=== PATIENT | male | born 1945 | race Caucasian/White ===

== ENCOUNTER 2016-06-04 09:55 | Outpatient (CLI) | payer MEDICARE, BC ==
--- NOTE | 2016-06-04 15:09 | ULT ---
LEFT LOWER EXTREMITY VENOUS DOPPLER ULTRASOUND: Date: 06/04/16 Color duplex Doppler ultrasonography of the deep veins of the left lower extremity was performed for evaluation of calf swelling. FINDINGS: Clot is present with poor to no compressibility in the deep veins beginning at the proximal femoral vein down through the calf region. Normal flow and compression does not occur again until the web art director ior tibial veins near the ankle. The finding are consistent with deep venous thrombosis. There is no flow or augmentation through these areas. IMPRESSION: Positive for deep venous thrombosis from the proximal femoral vein down through the calf veins. ER notified at 1115 hours. CODE CR. POS: [facility]
== END 2016-06-04 09:56 | disposition home or self-care (01) ==
LOC: BURULT 09:55
PROVIDERS: ATTEND Family Medicine
DX: M79.89 Other specified soft tissue disorders (principal); R60.9 Edema, unspecified

== ENCOUNTER 2016-06-04 10:47 | Emergency (ER) | payer MEDICARE, BC ==
[2016-06-04 11:27] LABS: #Eosinphils 0.1 thou/uL (0.0-0.7); #Monocytes 0.5 thou/uL (0.11-0.59); #Neutrophils 12.1 thou/uL (1.40-6.50); %Basophils 0.3 % (0.0-1.0); %Eosinophils 0.4 % (0.0-10.0); %Monocytes 3.7 % (0.0-10.0); Hematocrit 48.1 % (42.0-52.0); Mean Platelet Volume 6.7 fL (7.4-10.4); Red Blood Cell (RBC) Count 5.39 mill/uL (4.70-6.10); White Blood Cell (WBC) Count 13.7 thou/uL (4.8-10.8)
[2016-06-04] MEDS ORDERED: Enoxaparin Sodium 100 MG/ML SYRINGE ONE (11:27)
[2016-06-04 11:31] LABS: PTT 26.2 SEC (22.9-36.1); Prothrombin Time 13.9 SEC (12.0-14.7)
[2016-06-04 11:41] LABS: ALT (SGPT) 31 U/L (0-55); AST (SGOT) 25 U/L (5-34); Alkaline Phosphatase 82 U/L (40-150); Anion Gap 12 mmol/L (10-20); BUN (Urea Nitrogen) 21 mg/dL (8.4-25.7); Bilirubin, Total 0.4 mg/dL (0.2-1.2); Calc. Creatinine Clearance 0 mL/min (70-130); Calcium 9.5 mg/dL (7.8-10.44); Carbon Dioxide 28 mmol/L (23-31); Chloride 104 mmol/L (98-107); Estimated GFR-MDRD 86; Globulin 3.6 g/dL (2.4-3.5); Protein, Total 7.3 g/dL (5.8-8.1)
[2016-06-04 12:32] LABS: Bilirubin Negative (Negative); Blood, Urine Negative (Negative); Glucose, Urine (Dipstick) Negative (Negative); Ketone, Urine Negative (Negative); Nitrite Negative (Negative); Protein, Urine (Dipstick) Negative (Neg-Trace)
[2016-06-04] MEDS ORDERED: Clopidogrel Bisulfate 75 MG TAB ONE (12:34)
--- NOTE | 2016-06-04 13:03 | ERRECORD ---
[facility] EMERGENCY RECORD HPI EXTREMITY (11:47 JPIP) CHIEF COMPLAINT: Patient presents for evaluation of pain, to the left knee, to the left lower leg, Patient presents for evaluation of CO pain in the left knee for 5 days. states he had an ultrasound this AM and was sent straight to the ED for a DVT. HISTORIAN: History provided by patient, History provided by patient's spouse. MECHANISM OF INJURY: Unknown mechanism. LOCATION: Symptoms are localized, most severe in left leg. SEVERITY: Current severity of pain rated as 0/10. TIME COURSE: Sudden onset of symptoms, 5, days ago, There has been no change in the patient's symptoms over time, are constant. ASSOCIATED WITH: Associated with decreased use, No associated distal neuro complaint, No associated erythema, No associated fever, No associated inability to ambulate, No associated inability to bear weight, pain on weight bearing and ROM. EXACERBATED BY: Patient's condition exacerbated by walking, Patient's condition exacerbated by bearing weight. RELIEVED BY: Patient's condition relieved by nothing. ROS (11:49 JPIP) CONSTITUTIONAL: Historian denies chills, denies fever. CARDIOVASCULAR: Historian denies chest pain, denies dyspnea on exertion. RESPIRATORY: Historian denies cough, denies shortness of breath. GI: Historian denies nausea, denies vomiting. MUSCULOSKELETAL: Historian reports arthralgias, reports myalgias. SKIN: Historian denies rash, denies skin changes, denies skin lesions. NEUROLOGIC: Historian denies paresthesias. NOTES: All systems reviewed, negative except as described above. PAST MEDICAL HISTORY MEDICAL HISTORY: Flu vaccine not up to date, Tetanus not up to date, Past medical history includes cardiac history, myocardial infarction, Flu vaccine not up to date, Tetanus not up to date, Pneumococcal vaccine not up to date, Past medical history includes history of hypertension. (11:42 JSMI) MALE SURGICAL HISTORY: CHEST TUBE AT YOUNG AGE FOR PNEUMONIA/PNEUMOTHORAX. Cardiac stent. (11:42 JSMI) PSYCHIATRIC HISTORY: No previous psychiatric history. (11:42 JSMI) SOCIAL HISTORY: Patient has no smoking history, Patient denies alcohol use, Patient denies drug use. (11:42 JSMI) NOTES: Nursing records reviewed, Medication list reviewed. (11:51 &a-1R&a+25V*p+0X*[id number]*c202B*c15G*c2P*p-0X&a-25V&a+1R Name: Edy Guajardo : 1945 M71 MedRec: [id number] AcctNum: [id number] Prepared: TueJun 04, 2016 13:01 by Interface Page 1 of 4 pMD [facility] EMERGENCY RECORD JPIP) KNOWN ALLERGIES Penicillins CURRENT MEDICATIONS meTOPROLOL succinate: TABLET, EXTENDED RELEASE 24 HR : Strength - 25 mg : ORAL Patient Dose: once a day. (11:04 JSMI) atorvastatin: TABLET : Strength - 80 mg : ORAL Patient Dose: once a day. (11:04 JSMI) predniSONE: TABLET : Strength - 50 mg : ORAL Patient Dose: once a day. (11:05 JSMI) aspirin: TABLET : Strength - 81 mg : ORAL Patient Dose: once a day. (11:06 JSMI) coQ10 (ubiquinol): CAPSULE : Strength - 100 mg : ORAL Patient Dose: once a day. (11:06 JSMI) VITAL SIGNS VITAL SIGNS: BP: 152/83, Pulse: 59, Resp: 14, Temp: 97.7 (Oral), Pain: 0, O2 sat: 96 on Room Air, Time: 06/04/2016 10:54. (10:54 JSMI) BP: 160/87, Pulse: 60, Resp: 14, Pain: 0, O2 sat: 98 on ra, Time: 06/04/2016 11:07. (11:07 JSMI) BP: 140/78, Pulse: 61, Resp: 14, Pain: 0, O2 sat: 95 on Room Air, Time: 06/04/2016 11:39. (11:39 JSMI) BP: 160/92, Pulse: 65, Resp: 18, Pain: 0, O2 sat: 98 on ra, Time: 06/04/2016 12:30. (12:30 MI) BP: 148/93, Pulse: 66, Resp: 18, Pain: 0, O2 sat: 97 on Room Air, Time: 06/04/2016 12:27. (12:27 [facility]) BP: 148/93, Pulse: 65, Resp: 16, Pain: 0, O2 sat: 98 on ra, Time: 06/04/2016 12:44. (12:44 [facility]) PHYSICAL EXAM (11:49 [facility]) CONSTITUTIONAL: Vital signs reviewed, Patient afebrile, Pulse normal, Blood pressure normal, Respiratory rate normal, Patient appears non toxic, Patient appears pain free, Patient alert and oriented to person, place and time. HEAD: Head exam included findings of head atraumatic, normocephalic. EYES: Eye exam included findings of eyelids normal to inspection, Conjunctiva normal, Sclera normal, no periorbital ecchymosis, no periorbital edema, no periorbital erythema. NECK: Neck exam included findings of normal range of motion, Trachea midline, no carotid bruits, no jugular venous distention, no cervical adenopathy, no tenderness. RESPIRATORY CHEST: Respiratory exam included findings of no &a-1R&a+25V*p+0X*c2222V*c202B*c15G*c2P*p-0X&a-25V&a+1R Name: Edy Guajardo : 1945 M71 MedRec: [id number] AcctNum: [id number] Prepared: TueJun 04, 2016 13:01 by Interface Page 2 of 4 pMD [facility] EMERGENCY RECORD respiratory distress, Breath sounds clear, No wheezing, No rales, No rhonchi, Breath sounds not absent, Breath sounds not diminished. CARDIOVASCULAR: Cardiovascular exam included findings of heart rate regular rate and rhythm, Heart sounds normal. ABDOMEN MALE: Abdominal exam included findings of abdomen nontender, Liver normal, Spleen normal, no distension, no mass, no pulsatile masses, no peritoneal signs, no rigidity, no guarding, no rebound. UPPER EXTREMITY: Upper extremity exam included findings of inspection normal, no abrasions, no contusions, no deformity, no lacerations, range of motion normal. LOWER EXTREMITY: Lower extremity exam included findings of inspection abnormal, +fullness and TTP of the left popliteal fossa, distal pulses intact, capillary refill less than 2 seconds, no edema, Calf tenderness, to the left lower extremity, Knee tenderness, left side, posterior, Lower leg tenderness, left side, posterior, upper LE. NEURO: Librado coma scale 15, no focal motor deficits, no focal sensory deficits. SKIN: Skin exam included findings of skin warm, dry, and normal in color. PSYCHIATRIC: Psychiatric exam included findings of patient oriented to person place and time, Normal affect. EKG INTERPRETATION (11:53 JPIP) MONITOR STRIP: pvc monitor strip interpreted by Emergency Department Physician, Monitor strip shows normal sinus rhythm, with no ectopics. 12 LEAD EKG INTERPRETATION: 12 lead EKG interpreted by Emergency Department Physician at time of study, 12 lead EKG shows, sinus bradycardia, Rate (beats per minute): 55, with no ectopics, Conduction normal, [place] normal, Other findings include:, nonspecific ST changes, Clinical impression:, other dysrhythmia sinus bradycardia. RADIOLOGYINTERPRETATION CHEST: Chest CT, with contrast shows, no infiltrate, no pneumothorax, no hemothorax, no pleural effusion, pulmonary embolism bilaterally. (12:31 JPIP) LOWER EXTREMITIES: Doppler, of the left leg shows, Other findings: +DVT femoral vein. (11:54 JPIP) CREDIT COLLECTIONS ANALYST: Preliminary ultrasound reviewed by, Radiologist. (11:55 JPIP) Preliminary review of CT scans by, Radiologist. (12:31 JPIP) MEDICATION ADMINISTRATION SUMMARY Drug Name: Plavix, Dose Ordered: 75 mg, Route: Oral, Status: Given, Time: 12:37 06/04/2016, &a-1R&a+25V*p+0X*[id number]*c202B*c15G*c2P*p-0X&a-25V&a+1R Name: Edy Guajardo : 1945 M71 MedRec: [id number] AcctNum: [id number] Prepared: TueJun 04, 2016 13:01 by Interface Page 3 of 4 pMD [facility] EMERGENCY RECORD Drug Name: *aspirin oral, Dose Ordered: 324 mg, Route: Oral, Status: Given, Time: 11:36 06/04/2016, Drug Name: Lovenox, Dose Ordered: 90 mg, Route: Subcutaneous, Status: Given, Time: 11:35 06/04/2016, *Additional information available in notes, Detailed record available in Medication Service section. PROBLEM LIST No recorded problems DIAGNOSIS (12:37 JPIP) FINAL: PRIMARY: Multiple PE's, ADDITIONAL: DVT - left lower leg. PRESCRIPTION No recorded prescriptions DISPOSITION PATIENT: Disposition Type: Transfer, Disposition: Transfer to [facility], Disposition Transport: Ambulance, Condition: Fair. (12:37 JPIP) Patient left the department. (12:57 JSMI) Menjivar: AHOO=GIRISH [place], August THEA=DO Acevedo Joseph JSMI=OHRACE Guzman, Gauri &a-1R&a+25V*p+0X*c5900W*c202B*c15G*c2P*p-0X&a-25V&a+1R Name: Edy Guajardo : 1945 M71 MedRec: [id number] AcctNum: [id number] Prepared: TueJun 04, 2016 13:01 by Interface Page 4 of 4 pMD MTDD
--- NOTE | 2016-06-04 13:08 | CT ---
CT ANGIO OF THE CHEST: DATE: 06/04/16. FINDINGS: Spiral CT of the chest was performed for evaluation of possible pulmonary embolism in this patient w ith known DVT of the left leg. Axial slices were acquired after giving a bolus of IV contrast. Obl ique coronal and coronal reformations through the pulmonary arteries were then obtained. This study is positive for pulmonary embolism. There are multiple defects in pulmonary arteries martin aterally leading to all lobes. These begin in the secondary branches and extend outward and some cl ots are fairly sizable. Literally, one can find clots in arteries going to each of the lobes. Clot s are particularly large leading to the left upper lobe as well as toward the right lower and right middle lobes. The mediastinum was otherwise unremarkable. There are coronary artery calcifications in the LAD and circumflex arteries and probably to a lesser extent in the right coronary. There is no sign of aortic dissection or aneurysm. No pericardial effusion was seen. There are no pleural effusions. There is a pleural-based density in the right lower lobe peripheral ly that measures about 2.3 cm in size. It may be a small peripheral infarction. An actual mass see ms less likely. The lungs are otherwise clear. Scans go a short ways into the upper abdomen. Multiple splenic granulomas are noted. There may be a small cyst in the dome of the right lobe of the liver. IMPRESSION: Multiple pulmonary emboli in all segments bilaterally, some of which are fairly sizable. Many start immediately after the first branch point of each main pulmonary artery. Report taken to ER at 1228 on 06/04/16. CODE CR POS: DEBRA
--- NOTE | 2016-06-04 13:09 | PICIS ---
[facility] EMERGENCY RECORD COMMUNICATIONS (12:35 JP) COMMUNICATIONS: Physician, contacted/paged at 1235, Reason for notification transfer, Dr Masterson accepts. TRIAGE (11:01 JSMI) PATIENT: NAME: Edy Guajardo, AGE: 71, GENDER: male, : Tue1945, TIME OF GREET: TueJun 04, 2016 10:49, PREFERRED LANGUAGE: Nepali, ETHNICITY: Not or , ECODE BILLING MAP: [place], SSN: [id number], Zip Code: [address], KG WEIGHT: 90.26, PHONE: , , , PERSON ID: [id number], PAYMENT: [employer], PCP: DO RIBERA JOHN SCOTT. (11:01 JSMI) COMPLAINT: Left Leg Pain. (11:01 JSMI) ADMISSION: URGENCY: 3 Urgent, ADMISSION SOURCE: Home, TRANSPORT: CAR, BED: ER -02. (11:01 JSMI) ASSESSMENT: Assessment: PT PRESENTS AWAKE ALERT AND ORIENTED. SKIN PINK WARM AND DRY., Symptoms began 05/31/2016. (11:42 JSMI) SIRS SCORING: Heart Rate 55-109 (0), Temp range 96.8-101.1 (0), respiratory rate 12-24 (0), Mental Status altered: no (0), Infection or Suspected Infection: No. (11:42 JSMI) PROVIDERS: TRIAGE NURSE: Gauri Guzman RN. (11:01 JSMI) VITAL SIGNS: BP 152/83, Pulse 59, Resp 14, Temp 97.7, (Oral), Pain 0, O2 Sat 96, on Room Air, Time 06/04/2016 10:54. (10:54 JSMI) BP 140/78, Pulse 61, Resp 14, Pain 0, O2 Sat 95, on Room Air, Time 06/04/2016 11:39. (11:39 JSMI) PREVIOUS VISIT ALLERGIES: Penicillins. (11:01 JSMI) Penicillins. (11:42 JSMI) KNOWN ALLERGIES Penicillins CURRENT MEDICATIONS meTOPROLOL succinate: TABLET, EXTENDED RELEASE 24 HR : Strength - 25 mg : ORAL Patient Dose: once a day. (11:04 JSMI) atorvastatin: TABLET : Strength - 80 mg : ORAL Patient Dose: once a day. (11:04 JSMI) predniSONE: TABLET : Strength - 50 mg : ORAL Patient Dose: once a day. (11:05 JSMI) aspirin: TABLET : Strength - 81 mg : ORAL Patient Dose: once a day. (11:06 JSMI) coQ10 (ubiquinol): CAPSULE : Strength - 100 mg : ORAL Patient Dose: once a day. (11:06 JSMI) VITAL SIGNS VITAL SIGNS: BP: 152/83, Pulse: 59, Resp: 14, Temp: 97.7 (Oral), &a-1R&a+25V*p+0X*y2448E*c202B*c15G*c2P*p-0X&a-25V&a+1R Name: Edy Guajardo : 1945 M71 MedRec: [id number] AcctNum: [id number] Prepared: TueJun 04, 2016 13:06 by Interface Page 1 of 10 pMD [facility] EMERGENCY RECORD Pain: 0, O2 sat: 96 on Room Air, Time: 06/04/2016 10:54. (10:54 JSMI) BP: 160/87, Pulse: 60, Resp: 14, Pain: 0, O2 sat: 98 on ra, Time: 06/04/2016 11:07. (11:07 JSMI) BP: 140/78, Pulse: 61, Resp: 14, Pain: 0, O2 sat: 95 on Room Air, Time: 06/04/2016 11:39. (11:39 JSMI) BP: 160/92, Pulse: 65, Resp: 18, Pain: 0, O2 sat: 98 on ra, Time: 06/04/2016 12:30. (12:30 JSMI) BP: 148/93, Pulse: 66, Resp: 18, Pain: 0, O2 sat: 97 on Room Air, Time: 06/04/2016 12:27. (12:27 [facility]) BP: 148/93, Pulse: 65, Resp: 16, Pain: 0, O2 sat: 98 on ra, Time: 06/04/2016 12:44. (12:44 JSMI) NURSING ASSESSMENT: EXTREMITY LOWER (11:07 JSMI) CONSTITUTIONAL: Complex assessment performed, Patient arrives ambulatory, Gait steady, History obtained from patient, Patient appears comfortable, Patient cooperative, Patient alert, Oriented to person, place and time, Skin warm, Skin dry, Skin normal in color, Mucous membranes pink, Mucous membranes moist, Patient is well-groomed, Patient complains of left lower leg pain, Pt had pain to left lower leg wile walking on Tuesday. Seen by PCP and treated OP, ultrasound today shows DVT. Pt sent to ER for further evaluation and treatment. PAIN: aching pain, to the left lower leg. LEFT LOWER EXTREMITY: Left lower extremity assessment findings include capillary refill less than 2 seconds, Skin color normal, Skin temperature warm, Distal sensation intact, Muscle tone normal, dorsalis pedis pulse is +2, Leg circumference: 42cm. RIGHT LOWER EXTREMITY: Right lower extremity assessment findings include capillary refill less than 2 seconds, Skin color normal, Skin temperature warm, Distal sensation intact, Muscle tone normal, Leg circumference: 39cm. VITAL SIGNS: BP: 160, / 87, Pulse: 60, Resp: 14, Pain: 0, O2 sat: 98, on: ra. NURSING PROCEDURE: EKG CHART (11:31 AHOO) PATIENT IDENTIFIER: Patient actively involved in identification process, Patient's identity verified by patient stating name, Patient's identity verified by patient stating date, Patient's identity verified by hospital ID bracelet, Patient's identity verified by family member. EKG: EKG indicated for DVT, 12 lead EKG performed on the left chest, done by ADRIANA COX LVN, first EKG. FOLLOW-UP: After procedure, EKG for interpretation given to Dr. DR ACEVEDO. NURSING PROCEDURE: IV PATIENT IDENITIFIER: Patient actively involved in identification process, Patient's identity verified by patient stating name, Patient's identity verified by patient stating date, Patient's identity verified by hospital ID bracelet, Patient's identity &a-1R&a+25V*p+0X*m0413D*c202B*c15G*c2P*p-0X&a-25V&a+1R Name: Edy Guajardo : 1945 M71 MedRec: [id number] AcctNum: [id number] Prepared: TueJun 04, 2016 13:06 by Interface Page 2 of 10 pMD [facility] EMERGENCY RECORD verified by family member. (11:20 AHOO) IV SITE 1: IV therapy indicated for medication administration, IV established, to the right antecubital, using an 18 gauge catheter, in one attempt, Saline lock established, Flushed with normal saline (mls): 10ML, Labs drawn at time of placement, labeled in the presence of the patient and sent to lab. (11:20 AHOO) FOLLOW-UP SITE 1: Notes: IV patent at discharge, no signs of infiltration. (12:57 JSMI) NURSING PROCEDURE: NURSE NOTES (12:30 JSMI) NURSES NOTES: Notes: CT positive for multiple pulmonary emboli, transfer process initiated. VITAL SIGNS: BP: 160, / 92, Pulse: 65, Resp: 18, Pain: 0, O2 sat: 98, on: ra. NURSING PROCEDURE: TRANSFER TRANSFER: Reason for transfer need for specialized care, Diagnosis: DVT, multiple bilateral P.E, Accepting institution: [facility], Accepting physician: Dr. Masterson, Referring physician: Dr. Acevedo, Transported by urgent ambulance, accompanied by emergency medical services personnel, Report called to receiving facility, Summary of Care printed, Copy of patient record prepared for receiving facility, Copy of diagnostic studies, Medication reconciliation form prepared and sent to receiving facility, Patient consent for transfer signed, Patient given appropriate sedation for safe transport, Family member contacted, at bedside, Notes: 1230 Transfer center notified 1235 Accepting MD and Admin approval 1230 called EMS 1237 EMS arrived 1244 Pt departed. (12:44 JSMI) Report called to receiving facility, [facility], Provided opportunity to answer questions. (12:55 JSMI) VITAL SIGNS: BP: 148, / 93, Pulse: 65, Resp: 16, Pain: 0, O2 sat: 98, on: ra. (12:44 JSMI) NURSING PROCEDURE: TRANSPORT TO TESTS PATIENT IDENTIFIER: Patient actively involved in identification process, Patient's identity verified by patient stating name, Patient's identity verified by patient stating date, Patient's identity verified by hospital ID bracelet, Patient's identity verified by family member. (12:01 AHOO) TRANSPORT TO TESTS: Patient transported to CT scan, via wheelchair, Accompanied by x-ray hazardous waste technician. (12:01 AHOO) FOLLOW-UP: After procedure, patient returned to emergency department. (12:17 [facility]) ORDER DETAILS Order Name: [employer] MANAGER ED, Status: Done, Time: 11:26 06/04/2016, User: BRIEN, &a-1R&a+25V*p+0X*d0910R*c202B*c15G*c2P*p-0X&a-25V&a+1R Name: Edy Guajardo : 1945 M71 MedRec: [id number] AcctNum: [id number] Prepared: TueJun 04, 2016 13:06 by Interface Page 3 of 10 D [facility] EMERGENCY RECORD - Ordered for: DO Acevedo Joseph, - Entered by: DO Acevedo Joseph - TueJun 04, 2016 11:12, - Quantity: 1, Order Name: CBC with Differential, Status: Active, Time: 11:10 06/04/2016, User: THEA, - Ordered for: DO Acevedo Joseph, - Entered by: DO Acevedo Joseph - TueJun 04, 2016 11:10, - Quantity: 1, Order Name: Comprehensive Metabolic Panel, Status: Active, Time: 11:10 06/04/2016, User: THEA, - Ordered for: DO Acevedo Joseph, - Entered by: DO Acevedo Joseph - TueJun 04, 2016 11:10, - Quantity: 1, Order Name: CTA Angio Chest W WO Con(PE Protocol), Status: Active, Time: 11:12 06/04/2016, User: THEA, - Ordered for: DO Acevedo Joseph, - Entered by: DO Acevedo Joseph - TueJun 04, 2016 11:12, - Quantity: 1, Order Name: EKG 12 Lead in Emergency Room, Status: Active, Time: 11:12 06/04/2016, User: THEA, - Ordered for: DO Acevedo Joseph, - Entered by: DO Acevedo Joseph - TueJun 04, 2016 11:12, - Quantity: 1, Order Name: ERRT Pulse Oximeter ER, Status: Active, Time: 11:12 06/04/2016, User: THEA, - Ordered for: DO Acevedo Joseph, - Entered by: DO Acevedo Joseph - TueJun 04, 2016 11:12, - Quantity: 1, Order Name: Protime with INR, Status: Active, Time: 11:10 06/04/2016, User: THEA, - Ordered for: DO Acevedo Joseph, - Entered by: DO Acevedo Joseph - TueJun 04, 2016 11:10, - Quantity: 1, Order Name: PTT, Status: Active, Time: 11:10 06/04/2016, User: THEA, - Ordered for: DO Acevedo Joseph, - Entered by: DO Acevedo Joseph - TueJun 04, 2016 11:10, - Quantity: 1, Order Name: SALINE LOCK, Status: Done, Time: 11:26 06/04/2016, User: BRIEN, - Ordered for: DO Acevedo Joseph, - Entered by: DO Acevedo Joseph - TueJun 04, 2016 11:12, - Quantity: 1, Order Name: Urinalysis w/ Rflx Microscopic, Status: Active, Time: 11:10 06/04/2016, User: THEA, - Ordered for: DO Acevedo Joseph, - Entered by: DO Acevedo Joseph - TueJun 04, 2016 11:10, - Quantity: 1. MEDICATION ADMINISTRATION SUMMARY &a-1R&a+25V*p+0X*w1724X*c202B*c15G*c2P*p-0X&a-25V&a+1R Name: Edy Guajardo : 1945 M71 MedRec: [id number] AcctNum: [id number] Prepared: TueJun 04, 2016 13:06 by Interface Page 4 of 10 pMD [facility] EMERGENCY RECORD Drug Name: Plavix, Dose Ordered: 75 mg, Route: Oral, Status: Given, Time: 12:37 06/04/2016, Drug Name: *aspirin oral, Dose Ordered: 324 mg, Route: Oral, Status: Given, Time: 11:36 06/04/2016, Drug Name: Lovenox, Dose Ordered: 90 mg, Route: Subcutaneous, Status: Given, Time: 11:35 06/04/2016, *Additional information available in notes, Detailed record available in Medication Service section. MEDICATION SERVICE Lovenox: Order: Lovenox (enoxaparin sodium) - Dose: 90 mg : Subcutaneous Schedule: Now Ordered by: Dar Acevedo DO Entered by: Dar Acevedo DO TueJun 04, 2016 11:15 , Acknowledged by: Gauri Guzman RN TueJun 04, 2016 11:26 Documented as given by: Gauri Guzman RN TueJun 04, 2016 11:35 Patient, Medication, Dose, Route and Time verified prior to administration. Correct patient, time, route, dose and medication confirmed prior to administration, Patient advised of actions and side-effects prior to administration, Allergies confirmed and medications reviewed prior to administration, Advised not to ambulate without assistance, Patient in position of comfort, Side rails up, Cart in lowest position, Family at bedside, Co-signed by: Adriana Cox LVN TueJun 04, 2016 11:36. Plavix: Order: Plavix (clopidogrel bisulfate) - Dose: 75 mg : Oral Schedule: Now Ordered by: Dar Acevedo DO Entered by: Dar Acevedo DO TueJun 04, 2016 12:34 Documented as given by: Gauri Guzman RN TueJun 04, 2016 12:37 Patient, Medication, Dose, Route and Time verified prior to administration. Correct patient, time, route, dose and medication confirmed prior to administration, Patient advised of actions and side-effects prior to administration, Allergies confirmed and medications reviewed prior to administration, Patient in position of comfort, Side rails up, Cart in lowest position. HPI EXTREMITY (11:47 JPIP) CHIEF COMPLAINT: Patient presents for evaluation of pain, to the left knee, to the left lower leg, Patient presents for evaluation of CO pain in the left knee for 5 days. states he had an ultrasound this AM and was sent straight to the ED for a DVT. HISTORIAN: History provided by patient, History provided by patient's spouse. MECHANISM OF INJURY: Unknown mechanism. LOCATION: Symptoms are localized, most severe in left leg. SEVERITY: Current severity of pain rated as 0/10. TIME COURSE: Sudden onset of symptoms, &a-1R&a+25V*p+0X*d5675O*c202B*c15G*c2P*p-0X&a-25V&a+1R Name: Edy Guajardo : 1945 M71 MedRec: [id number] AcctNum: [id number] Prepared: TueJun 04, 2016 13:06 by Interface Page 5 of 10 pMD [facility] EMERGENCY RECORD 5, days ago, There has been no change in the patient's symptoms over time, are constant. ASSOCIATED WITH: Associated with decreased use, No associated distal neuro complaint, No associated erythema, No associated fever, No associated inability to ambulate, No associated inability to bear weight, pain on weight bearing and ROM. EXACERBATED BY: Patient's condition exacerbated by walking, Patient's condition exacerbated by bearing weight. RELIEVED BY: Patient's condition relieved by nothing. ROS (11:49 JPIP) CONSTITUTIONAL: Historian denies chills, denies fever. CARDIOVASCULAR: Historian denies chest pain, denies dyspnea on exertion. RESPIRATORY: Historian denies cough, denies shortness of breath. GI: Historian denies nausea, denies vomiting. MUSCULOSKELETAL: Historian reports arthralgias, reports myalgias. SKIN: Historian denies rash, denies skin changes, denies skin lesions. NEUROLOGIC: Historian denies paresthesias. NOTES: All systems reviewed, negative except as described above. PAST MEDICAL HISTORY MEDICAL HISTORY: Flu vaccine not up to date, Tetanus not up to date, Past medical history includes cardiac history, myocardial infarction, Flu vaccine not up to date, Tetanus not up to date, Pneumococcal vaccine not up to date, Past medical history includes history of hypertension. (11:42 JSMI) MALE SURGICAL HISTORY: CHEST TUBE AT YOUNG AGE FOR PNEUMONIA/PNEUMOTHORAX. Cardiac stent. (11:42 JSMI) PSYCHIATRIC HISTORY: No previous psychiatric history. (11:42 JSMI) SOCIAL HISTORY: Patient has no smoking history, Patient denies alcohol use, Patient denies drug use. (11:42 JSMI) NOTES: Nursing records reviewed, Medication list reviewed. (11:51 JPIP) PHYSICAL EXAM (11:49 JPIP) CONSTITUTIONAL: Vital signs reviewed, Patient afebrile, Pulse normal, Blood pressure normal, Respiratory rate normal, Patient appears non toxic, Patient appears pain free, Patient alert and oriented to person, place and time. HEAD: Head exam included findings of head atraumatic, normocephalic. EYES: Eye exam included findings of eyelids normal to inspection, Conjunctiva normal, Sclera normal, no periorbital ecchymosis, no &a-1R&a+25V*p+0X*n5444P*c202B*c15G*c2P*p-0X&a-25V&a+1R Name: Edy Guajardo : 1945 M71 MedRec: [id number] AcctNum: [id number] Prepared: TueJun 04, 2016 13:06 by Interface Page 6 of 10 pMD [facility] EMERGENCY RECORD periorbital edema, no periorbital erythema. NECK: Neck exam included findings of normal range of motion, Trachea midline, no carotid bruits, no jugular venous distention, no cervical adenopathy, no tenderness. RESPIRATORY CHEST: Respiratory exam included findings of no respiratory distress, Breath sounds clear, No wheezing, No rales, No rhonchi, Breath sounds not absent, Breath sounds not diminished. CARDIOVASCULAR: Cardiovascular exam included findings of heart rate regular rate and rhythm, Heart sounds normal. ABDOMEN MALE: Abdominal exam included findings of abdomen nontender, Liver normal, Spleen normal, no distension, no mass, no pulsatile masses, no peritoneal signs, no rigidity, no guarding, no rebound. UPPER EXTREMITY: Upper extremity exam included findings of inspection normal, no abrasions, no contusions, no deformity, no lacerations, range of motion normal. LOWER EXTREMITY: Lower extremity exam included findings of inspection abnormal, +fullness and TTP of the left popliteal fossa, distal pulses intact, capillary refill less than 2 seconds, no edema, Calf tenderness, to the left lower extremity, Knee tenderness, left side, posterior, Lower leg tenderness, left side, posterior, upper LE. NEURO: [place] coma scale 15, no focal motor deficits, no focal sensory deficits. SKIN: Skin exam included findings of skin warm, dry, and normal in color. PSYCHIATRIC: Psychiatric exam included findings of patient oriented to person place and time, Normal affect. LAB INTERPRETATION (11:52 [facility]) INTERPRETATION: I reviewed the lab results, All labs normal except as noted below, CBC abnormal, White blood cell count elevated, Neutrophils elevated, Chemistry abnormal, Glucose elevated, Liver functions normal, PT normal, PTT normal. EVENTS TRANSFER: Triage to Emergency Emergency Room -02. (TueJun 04, 2016 11:01 JSMI) Removed from Emergency Emergency Room -02. (12:57 JSNM) RADIOLOGYINTERPRETATION CHEST: Chest CT, with contrast shows, no infiltrate, no pneumothorax, no hemothorax, no pleural effusion, pulmonary embolism bilaterally. (12:31 JPIP) LOWER EXTREMITIES: Doppler, of the left leg shows, Other findings: +DVT femoral vein. (11:54 JPIP) ENERGY EFFICIENCY FINANCE MANAGER: Preliminary ultrasound reviewed by, Radiologist. (11:55 JPIP) &a-1R&a+25V*p+0X*m0817Z*c202B*c15G*c2P*p-0X&a-25V&a+1R Name: Edy Guajardo : 1945 M71 MedRec: [id number] AcctNum: [id number] Prepared: TueJun 04, 2016 13:06 by Interface Page 7 of 10 pMD [facility] EMERGENCY RECORD Preliminary review of CT scans by, Radiologist. (12:31 JPIP) EKG INTERPRETATION (11:53 JPIP) MONITOR STRIP: finished stock inspector strip interpreted by Emergency Department Physician, Monitor strip shows normal sinus rhythm, with no ectopics. 12 LEAD EKG INTERPRETATION: 12 lead EKG interpreted by Emergency Department Physician at time of study, 12 lead EKG shows, sinus bradycardia, Rate (beats per minute): 55, with no ectopics, Conduction normal, [place] normal, Other findings include:, nonspecific ST changes, Clinical impression:, other dysrhythmia sinus bradycardia. O2SAT INTERPRETATION (11:52 JPIP) O2SAT: Continuous pulse oximetry, Oxygen saturation 95%, on room air, Oxygen saturation interpretation: Normal, No intervention required. PROBLEM LIST No recorded problems DIAGNOSIS (12:37 JPIP) FINAL: PRIMARY: Multiple PE's, ADDITIONAL: DVT - left lower leg. DISPOSITION PATIENT: Disposition Type: Transfer, Disposition: Transfer to [facility], Disposition Transport: Ambulance, Condition: Fair. (12:37 JPIP) Patient left the department. (12:57 JSMI) PRESCRIPTION No recorded prescriptions IMAGING ULTRASOUND READING: Image captured from scanner. (11:28 AHOO) *EKG: Image captured from scanner. (11:58 AHOO) CONSENTS: Image captured from scanner. (12:45 AHOO) *MEMORANDUM OF TRANSFER: Image captured from scanner. (12:46 AHOO) PHYSICIAN CERTIFICATION STATEMENT: Image captured from scanner. (12:46 AHOO) *SUPPLY CHARGE SHEET: Image captured from scanner. (12:46 AHOO) RESULTS LABORATORY: CBC with Differential Collection DT: TueJun 04, 2016 11:22, *White Blood Cell (WBC) Count 13.7 - H thou/uL, Range (4.8-10.8), Red Blood Cell (RBC) Count 5.39 mill/uL, Range (4.70-6.10), &a-1R&a+25V*p+0X*l0258V*c202B*c15G*c2P*p-0X&a-25V&a+1R Name: Edy Guajardo : 1945 M71 MedRec: [id number] AcctNum: [id number] Prepared: TueJun 04, 2016 13:06 by Interface Page 8 of 10 pMD [facility] EMERGENCY RECORD Hemoglobin 15.5 g/dL, Range (14.0-18.0), Hematocrit 48.1 %, Range (42.0-52.0), Mean Corpuscular Volume 89.3 fl, Range (80.0-94.0), Mean Corpuscular Hemoglobin 28.9 pg, Range (27.0-31.0), Mean Corpuscular HGB CONC 32.3 g/dL, Range (32.0-36.0), RBC Distribution Width 11.6 %, Range (11.5-14.5), Platelet Count 267 thou/uL, Range (130-400), *Mean Platelet Volume 6.7 - L fL, Range (7.4-10.4), *%Neutrophils 88.0 - H %, Range (42.0-75.0), *%Lymphocytes 7.5 - L %, Range (21.0-51.0), %Monocytes 3.7 %, Range (0.0-10.0), %Eosinophils 0.4 %, Range (0.0-10.0), %Basophils 0.3 %, Range (0.0-1.0), *#Neutrophils 12.1 - H thou/uL, Range (1.40-6.50), *#Lymphocytes 1.0 - L thou/uL, Range (1.20-3.40), #Monocytes 0.5 thou/uL, Range (0.11-0.59), #Eosinphils 0.1 thou/uL, Range (0.0-0.7), #Basophils 0.0 thou/uL, Range (0.0-0.2). (11:32 [facility]) Comprehensive Metabolic Panel Collection DT: TueJun 04, 2016 11:22, Sodium 140 mmol/L, Range (136-145), Potassium 4.1 mmol/L, Range (3.5-5.1), Chloride 104 mmol/L, Range (98-107), Carbon Dioxide 28 mmol/L, Range (23-31), Anion Gap 12 mmol/L, Range (10-20), BUN (Urea Nitrogen) 21 mg/dL, Range (8.4-25.7), Creatinine 0.88 mg/dL, Range (0.7-1.3), Estimated GFR-MDRD 86 , Reference Range for Estimated GFR: Greater than 90, mL/min/1.73 m2 NOTE: The MDRD equation has not been validated for use, with the elderly (over 70 years of age), women, patients with, serious comorbid condition or persons with extremes of body size, muscle, mass, or nutritional status. , *Glucose 130 - H mg/dL, Range (80-115), Calcium 9.5 mg/dL, Range (7.8-10.44), Bilirubin, Total 0.4 mg/dL, Range (0.2-1.2), Protein, Total 7.3 g/dL, Range (5.8-8.1), NOTE: Plasma values are generally 0.3 to 0.5 g/dL higher than serum values, due to the presence of fibrinogen. , Albumin 3.7 g/dL, Range (3.4-4.8), *Globulin 3.6 - H g/dL, Range (2.4-3.5), *Alb/Glob Ratio 1.0 - L g/dL, Range (1.2-2.2), Alkaline Phosphatase 82 U/L, Range (40-150), AST (SGOT) 25 U/L, Range (5-34), ALT (SGPT) 31 U/L, Range (0-55). (11:43 [facility]) PTT Collection DT: TueJun 04, 2016 11:22, See comment below , Anticoagulant? NONE Medical Necessity SUSPECT COAGULOPATHY , PTT 26.2 SEC, Range (22.9-36.1). (11:52 JP) &a-1R&a+25V*p+0X*g6669Z*c202B*c15G*c2P*p-0X&a-25V&a+1R Name: Edy Guajardo : 1945 M71 MedRec: [id number] AcctNum: [id number] Prepared: TueJun 04, 2016 13:06 by Interface Page 9 of 10 pMD [facility] EMERGENCY RECORD Protime with INR Collection DT: TueJun 04, 2016 11:22, See comment below , Anticoagulant? NONE Medical Necessity SUSPECT COAGULOPATHY , Prothrombin Time 13.9 SEC, Range (12.0-14.7), INR-International Normal Ratio 1.0 , ATTENTION: READ CAREFULLY , The, recommended therapeutic ranges for oral anticoagulant treatments are: , , Low Intensity: 1.5 - 2.0 Moderate Intensity: 2.0, - 3.0 High Intensity (1): 2.5 - 3.5 High, Intensity (2): 3.0 - 4.0 CRITICAL: >, 4.0 . (11:52 JPIP) Urinalysis w/ Rflx Microscopic Collection DT: TueJun 04, 2016 12:32, Color Yellow , Range (Yellow), Clarity Clear , Range (Clear), Specific [place], Urine 1.020 , Range (1.005-1.030), pH, Urine 5.5 , Range (5.0-9.0), Leukocyte Negative , Range (Negative), Nitrite Negative , Range (Negative), Protein, Urine (Dipstick) Negative mg/dL, Range (Neg-Trace), Glucose, Urine (Dipstick) Negative mg/dL, Range (Negative), Ketone, Urine Negative mg/dL, Range (Negative), Urobilinogen 1.0 mg/dL, Range (0.2-1.0), Bilirubin Negative , Range (Negative), Blood, Urine Negative , Range (Negative). (12:34 JPIP) [place]ar: AHOO=GIRISH Cox, August JPIP=DO Acevedo Joseph JSMI=HORACE Guzman, Gauri &a-1R&a+25V*p+0X*q7983W*c202B*c15G*c2P*p-0X&a-25V&a+1R Name: Edy Guajardo : 1945 M71 MedRec: [id number] AcctNum: [id number] Prepared: TueJun 04, 2016 13:06 by Interface Page 10 of 10 pMD MTDD
== END 2016-06-04 12:44 | disposition short-term general hospital (02) ==
LOC: BURERS 10:47
DX: I26.99 Other pulmonary embolism without acute cor pulmonale (principal); I82.4Z2 Acute embolism and thrombosis of unspecified deep veins of left distal lower extremity; I25.2 Old myocardial infarction; I10 Essential (primary) hypertension
CPT/HCPCS: 71275; 80053; 81003; 85025; 85610; 85730; 93005; 94760; 96372; J1650